=== PATIENT | female | born 1995 | race Caucasian/White ===

== ENCOUNTER 2017-02-19 22:55 | Emergency (ER) | payer OTHER ==
[~2017-02-19] VITALS: Ht 149.9 cm; Wt 44.3 kg
[~2017-02-19 22:55] MED LIST: AMOX875T PO; BCPILLS PO; CIPR-255 PO; ONDA4TAB7 SL; PEDICHW34 PO; VITAMIN C PO
[2017-02-19 22:58] VITALS: Ht 149.9 cm; Wt 44.3 kg
[2017-02-19] MEDS ORDERED: CEPHALEXIN MONOHYDRATE 250 MG CAP PO STA ×2 (23:20)
--- NOTE | 2017-02-19 23:20 | EMERGENCY ROOM VISIT NOTE ---
History Report prepared by Meng: Evelyne Perez Under the Supervision of: Dr. Jaiden Waters M.D. First contact with patient: 23:01 Chief Complaint: HEMATURIA Stated Complaint: PEEING BLOOD AND CLOTS History of Present Illness The patient is a 21 year old female who presents to the Emergency Room with complaints of constant hematuria that was noticed earlier today. She states that there are blood clots in her urine. The patient states that she also experienced one episode of hematuria last week. The patient also experienced back pain a few days ago, but denies having any currently. She is also experiencing nausea, but denies vomiting. The patient also denies fevers. She states that she is not experiencing burning with urination. She adds that when she is finished urinating, she feels like she has to urinate more but cannot. The patient adds that she has been experiencing intermittent increased urinary frequency for the past 3 weeks. The patient is moving her bowels normally. The patient experienced UTIs as a child, but not many since then. The patient denies any current vaginal bleeding. She does not think she has any chance of being . She denies any history of abdominal surgeries. Source of History: patient Onset: earlier today Position: other (bladder) Quality: other (hematuria) Timing: constant Associated Symptoms: + back pain, + nausea, No fevers, No vomiting Note: no burning with urination, increased urinary frequency Review of Systems ROS: Please see HPI. At least 10 systems in total were reviewed and otherwise negative. Past Medical & Surgical Medical Problems: (1) Pneumonia Family History No pertinent family history Social History Smoking Status: Never Smoker Marital Status: single Housing Status: lives with family Occupation Status: student Current/Historical Medications Scheduled Amoxicillin & Pot Clavulanate (Augmentin 875-125 mg), 875 MG PO BID Control Pills ( Control Pills), 1 TAB PO DAILY Cephalexin Monohydrate (Keflex), 500 MG PO TID Ciprofloxacin Hcl (Cipro), 500 MG PO BID Pediatric Multiple Vitamin W/ (Gummi Bear Multivitamin/M), 1 CHW PO DAILY [Vitamin C], 1 TAB PO DAILY Scheduled PRN Ondansetron (Zofran Odt), 4 MG SL Q6H PRN for Nausea or Vomiting Phenazopyridine HCl (Pyridium), 200 MG PO TID PRN for Frequency/Burning w/ Urination Allergies Coded Allergies: Quadrivalent HPV (6,11,16,18) Recom (Verified Allergy, ., 11/05/13) Physical Exam Vital Signs Date Time Temp Pulse Resp B/P Pulse Ox O2 Delivery O2 Flow Rate FiO2 02/19/17 22:58 36.8 77 18 118/88 95 Room Air Physical Exam GENERAL: Patient is in no acute distress. HEENT: No acute trauma, normocephalic atraumatic, mucous membranes moist, no nasal congestion, no scleral icterus. NECK: No stridor, no adenopathy, no meningismus, trachea is midline. LUNGS: Clear to auscultation bilaterally, no wheeze, no rhonchi, breath sounds equal. HEART: Without murmurs gallops or rubs, regular rate and rhythm. ABDOMEN: Soft, mildly tender over bladder, bowel sounds positive, no hernias, no peritonitis. BACK: No flank discomfort with percussion. EXTREMITIES: No cyanosis or edema, full range of motion of all the joints without pain or difficulty, no signs for acute trauma. NEUROLOGIC: Oriented x 3, no acute motor or sensory deficits, no focal weakness. SKIN: No rash, no jaundice, no diaphoresis. Medical Decision & Procedures Laboratory Results Test 02/19/17 23:07 Urine dip showed blood, leukocytes, and nitrites, consistent with infection. Urine was negative. Laboratory results reviewed by me. ED Course 2304: The patient was evaluated in room B5. A complete history and physical exam was performed. 2320: Ordered Keflex Cap 500 mg PO, Keflex Cap 500 mg PO 2324: Reevaluated the patient. Discussed results and discharge instructions: she verbalized understanding and agreement. The patient is ready for discharge. 2330: Ordered Phenazopyridine HCl 1 homepack PO Medical Decision Differential diagnoses considered include UTI, hematuria, , vaginal bleeding, pyelonephritis. The patient presents with urinary frequency, urgency, she has had some intermittent blood in her urine. She has not had vomiting or flank pain. There has been no fever. No unusual vaginal discharge. She had no concerns for . The patient was not febrile or toxic. She was not by our testing. Urine dip does suggest infection with leukocytes, blood and nitrites. A urine culture is pending. The patient was given oral Pyridium and oral Keflex. She is being discharged on both. She can return if worsening. Impression Primary Impression: UTI (urinary tract infection) Scribe Attestation The scribe's documentation has been prepared under my direction and personally reviewed by me in its entirety. I confirm that the note above accurately reflects all work, treatment, procedures, and medical decision making performed by me. Departure Information Dispostion Home / Self-Care Prescriptions Phenazopyridine HCl (Pyridium) 200 Mg Tab 200 MG PO TID Y for Frequency/Burning w/Urination, #6 TAB Prov: Jaiden Waters M.D. 02/19/17 Cephalexin Monohydrate (Keflex) 500 Mg Cap 500 MG PO TID for 7 Days, #21 CAP Prov: Jaiden Waters M.D. 02/19/17 Referrals No Doctor, Assigned (PCP) Forms HOME CARE DOCUMENTATION FORM, IMPORTANT VISIT INFORMATION, WORK / SCHOOL INSTRUCTIONS Patient Instructions My [facility] [place] Additional Instructions keflex 3x per day for 1 week stay well hydrated pyridium 3x per day for 2 days for the discomfort to urinate tylenol for pain return if worseing or not improving Problem Qualifiers Primary Impression: UTI (urinary tract infection) Urinary tract infection type: site unspecified Hematuria presence: with hematuria Qualified Codes: N39.0 - Urinary tract infection, site not specified ; R31.9 - Hematuria, unspecified
[2017-02-19] MEDS ORDERED: PHEN-876 PO (23:23)
[2017-02-19] MEDS ORDERED: CEPH500C PO (23:23)
[2017-02-19] MEDS ORDERED: EMPTY 8 DRAM VIAL ONE (23:27)
[2017-02-19] MEDS ORDERED: PHENAZOPYRIDINE HOME PACK 200 MG VIAL PO ONE (23:30)
[2017-02-19 23:40] VITALS: BP 110/60; PULSE 61; TEMP 36.9; O2SAT 95
== END 2017-02-19 23:43 | disposition home or self-care (01) ==
LOC: C.EDB 22:56
DX: N39.0 Urinary tract infection, site not specified (principal); Z87.440 Personal history of urinary (tract) infections; Z79.899 Other long term (current) drug therapy; Z88.8 Allergy status to other drugs, medicaments and biological substances

== ENCOUNTER 2018-03-03 14:16 | Emergency (ER) | payer OTHER ==
[~2018-03-03] VITALS: Ht 149.9 cm; Wt 48.1 kg
[2018-03-03 14:18] VITALS: TEMP 36.7
[2018-03-03] MEDS ORDERED: DiphenhydrAMINE HCL 50 MG/ML VIAL IV STA (14:35)
[2018-03-03] MEDS ORDERED: MAGNESIUM SULFATE 1GM / D5W 1 GM BAG IV STA (14:35)
[2018-03-03] MEDS ORDERED: PROCHLORPERAZINE 5 MG/ML 2 ML VIAL IV STA (14:35)
[2018-03-03] MEDS ORDERED: SODIUM CHLORIDE 0.9% 1000ML 1,000 ML IV STA (14:35)
[2018-03-03] MEDS ORDERED: ACETAMINOPHEN 500 MG TAB PO STA (14:35)
[2018-03-03 14:44] VITALS: Ht 149.9 cm; Wt 48.1 kg
[2018-03-03 14:46] VITALS: O2SAT 99
--- NOTE | 2018-03-03 14:48 | EMERGENCY ROOM VISIT NOTE ---
History Report prepared by Meng: Ananda Godinez Under the Supervision of: Dr. Michael England M.D. First contact with patient: 14:21 Chief Complaint: ANXIETY Stated Complaint: LT HAND ARM LIPS AND TONGUE [id number] PREG History of Present Illness The patient is a 22 year old female who presents to the Emergency Room with complaints of resolved left face and hand numbness that occurred a couple of hours ago. The patient reports she is currently for the first time and is 16 weeks. She reports that she did have an ultrasound confirming that there was a baby in her uterus. The patient states that she had a 30 minute episode of left hand and left face numbness that occurred a couple of hours ago. She reports her lips and tongue also went numb during the the episode. The patient states she also started to experience blurriness in her eyes bilaterally that she describes as "crystal like". She states her symptoms resolved in 30 minutes but she reports she currently has a headache. The patient states she does a have a history of migraines, which she follows up with her PCP for. She reports she has not had a CT scan done but states she was put on medication, which she reports does not relieve her migraine. The patient denies any new abdominal pain , vomiting, and vaginal bleeding. She does report nausea but states she believes it is due to the . Source of History: patient Onset: a couple of hours ago Position: hand (left), other (left face) Quality: numbness Timing: resolved Associated Symptoms: + headache, + nausea, No vomiting, No abdominal pain Note: Associated symptoms: blurry vision Denies Vaginal bleeding Review of Systems See HPI for pertinent positives & negatives. A total of 10 systems reviewed and were otherwise negative. Past Medical & Surgical Medical Problems: (1) Pneumonia Family History No pertinent family history Social History Smoking Status: Current Every Day Smoker Marital Status: single Housing Status: lives with family Occupation Status: student Current/Historical Medications Scheduled Buspirone Hcl (Buspar), 1 TAB PO BID Multivit/Min/Iron/Fol Ac/Pren ( Vitamin), 1 TAB PO DAILY Allergies Coded Allergies: POLLEN (Unverified Allergy, Unknown, unknown, 03/03/18) Quadrivalent HPV (6,11,16,18) Recom (Verified Allergy, Unknown, ., 03/03/18 ) Uncoded Allergies: CAT AND DOG DANDER (Allergy, Unknown, unknown, 03/03/18) Physical Exam Vital Signs Date Time Temp Pulse Resp B/P (MAP) Pulse Ox O2 Delivery O2 Flow Rate FiO2 03/03/18 16:15 88 16 103/70 99 Room Air 03/03/18 15:33 77 16 108/76 98 Room Air 03/03/18 15:18 87 03/03/18 14:46 99 Room Air 03/03/18 14:18 36.7 109 18 116/79 99 Room Air Physical Exam GENERAL: Awake, alert, well-appearing, in no acute distress HENT: Normocephalic, atraumatic. Oropharynx unremarkable. No evidence of meningitis or encephalitis. EYES: Normal conjunctiva. Sclera non-icteric. NECK: Supple. No nuchal rigidity. FROM. No JVD. RESPIRATORY: Clear to auscultation. CARDIAC: Regular rate, normal rhythm. Extremities warm and well perfused. Pulses equal. ABDOMEN: Soft, non-distended. No tenderness to palpation. No rebound or guarding. No masses. RECTAL: Deferred. MUSCULOSKELETAL: Chest examination reveals no tenderness. The back is symmetrical on inspection without obvious abnormality. There is no CVA tenderness to palpation. No joint edema. LOWER EXTREMITIES: Calves are equal size bilaterally and non-tender. No edema. No discoloration. NEURO: Normal sensorium. No sensory or motor deficits noted. SKIN: No rash or jaundice noted. Medical Decision & Procedures Laboratory Results 03/03/18 14:59 Red Blood Count 3.57, Mean Corpuscular Volume 92.7, Mean Corpuscular Hemoglobin 33.1, Mean Corpuscular Hemoglobin Concent 35.6, Mean Platelet Volume 9.9, Neutrophils (%) (Auto) 67.6, Lymphocytes (%) (Auto) 23.9, Monocytes (%) (Auto) 6.9, Eosinophils (%) (Auto) 1.0, Basophils (%) (Auto) 0.3, Neutrophils # (Auto) 7.95, Lymphocytes # (Auto) 2.81, Monocytes # (Auto) 0.81, Eosinophils # (Auto) 0.12, Basophils # (Auto) 0.03 03/03/18 14:59 Test 03/03/18 14:59 03/03/18 15:17 White Blood Count 11.76 K/uL (4.8-10.8) Red Blood Count 3.57 M/uL (4.2-5.4) Hemoglobin 11.8 g/dL (12.0-16.0) Hematocrit 33.1 % (37-47) Mean Corpuscular Volume 92.7 fL (80-100) Mean Corpuscular Hemoglobin 33.1 pg (25-34) Mean Corpuscular Hemoglobin Concent 35.6 g/dl (32-36) Platelet Count 163 K/uL (130-400) Mean Platelet Volume 9.9 fL (7.4-10.4) Neutrophils (%) (Auto) 67.6 % Lymphocytes (%) (Auto) 23.9 % Monocytes (%) (Auto) 6.9 % Eosinophils (%) (Auto) 1.0 % Basophils (%) (Auto) 0.3 % Neutrophils # (Auto) 7.95 K/uL (1.4-6.5) Lymphocytes # (Auto) 2.81 K/uL (1.2-3.4) Monocytes # (Auto) 0.81 K/uL (0.11-0.59) Eosinophils # (Auto) 0.12 K/uL (0-0.5) Basophils # (Auto) 0.03 K/uL (0-0.2) RDW Standard Deviation 41.8 fL (36.4-46.3) RDW Coefficient of Variation 12.3 % (11.5-14.5) Immature Granulocyte % (Auto) 0.3 % Immature Granulocyte # (Auto) 0.04 K/uL (0.00-0.02) Anion Gap 7.0 mmol/L (3-11) Est Creatinine Clear Calc Drug Dose 127.1 ml/min Estimated GFR () > 150.0 Estimated GFR (Non- 139.2 BUN/Creatinine Ratio 18.7 (10-20) Calcium Level 8.4 mg/dl (8.5-10.1) Total Bilirubin 0.1 mg/dl (0.2-1) Aspartate Amino Transf (AST/SGOT) 14 U/L (15-37) Alanine Aminotransferase (ALT/SGPT) 12 U/L (12-78) Alkaline Phosphatase 51 U/L (45-117) Total Protein 6.0 gm/dl (6.4-8.2) Albumin 3.1 gm/dl (3.4-5.0) Globulin 2.9 gm/dl (2.5-4.0) Albumin/Globulin Ratio 1.1 (0.9-2) Human Chorionic Gonadotropin, Quant 29106 mIU/mL Urine Color YELLOW Urine Appearance CLEAR (CLEAR) Urine pH 5.0 (4.5-7.5) Urine Specific [place] 1.027 (1.000-1.030) Urine Protein NEG (NEG) Urine Glucose (UA) NEG (NEG) Urine Ketones 1+ (NEG) Urine Occult Blood NEG (NEG) Urine Nitrite NEG (NEG) Urine Bilirubin NEG (NEG) Urine Urobilinogen NEG (NEG) Urine Leukocyte Esterase NEG (NEG) Labs reviewed by ED physician. Medications Administered Medications (Trade) Dose Ordered Sig/Daniele Route Start Time Stop Time Status Last Admin Dose Admin Acetaminophen (Tylenol Tab) 1,000 mg NOW STAT PO 03/03/18 14:35 03/03/18 14:39 DC 03/03/18 15:09 1,000 MG Prochlorperazine Edisylate (Compazine Inj) 5 mg NOW STAT IV 03/03/18 14:35 03/03/18 14:39 DC 03/03/18 15:10 5 MG Diphenhydramine HCl (Benadryl Inj) 50 mg NOW STAT IV 03/03/18 14:35 03/03/18 14:39 DC 03/03/18 15:10 50 MG Sodium Chloride 1,000 ml @ 999 mls/hr Q1H1M STAT IV 03/03/18 14:35 03/03/18 15:35 DC 03/03/18 15:10 999 MLS/HR Magnesium Sulfate (Magnesium Sulfate 1gm / D5W) 1 gm NOW STAT IV 03/03/18 14:35 03/03/18 14:39 DC 03/03/18 15:10 1 GM Potassium Chloride (Klor-Con M10) 40 meq STK-MED ONCE .ROUTE 03/03/18 16:00 03/03/18 16:01 DC 03/03/18 16:03 40 MEQ ED Course 1421: Past medical records reviewed. The patient was evaluated in room B12B. A complete history and physical examination was performed. 1435: Ordered Magnesium Sulfate 1 gm IV, Sodium Chloride 1000 ml @ 999 mls/hr IV , Benadryl Injection 50 mg IV, Compazine Injection 5 mg IV, Tylenol Tab 1000 mg PO. 1600: Ordered Potassium Chloride 40 meq PO. 1631: Upon reexamination the patient is doing well. I discussed results and treatment plan with the patient. She verbalizes agreement and understanding. The patient is ready for discharge. Medical Decision Prior records/ancillary studies reviewed. Triage Nursing notes reviewed. Differential diagnosis: Etiologies such as migraine headache, meningitis, sinusitis, CO exposure, ICH, SAH, infection, tumor, headache, sinus thrombosis, arterial dissection, as well as others were entertained. This is a 22-year-old female who presents the emergency department complaining of a visual aura with a headache that followed. Based on the patient's complaint and presentation I do believe she suffered from a migraine. The patient is and using shared medical decision making I offered to do imaging of her head however she feels at this point that this can be deferred till after her . I am also in agreement with this. She has no evidence of meningitis or encephalitis on examination. Again using shared medical decision making, the patient did consent to a migraine cocktail. She was given Tylenol, Compazine and Benadryl, along with a cyst normal saline bolus and magnesium. Repeat examination revealed much improvement in the patient's symptoms. She does have a slight elevation in her white blood cell count 11.76 however I do feel that the patient is well enough to be discharged home as she is afebrile. She was given potassium here in the emergency department. Patient and family were in agreement with the treatment plan. Medication Reconcilliation Current Medication List: was personally reviewed by me Blood Pressure Screening Patient's blood pressure: Normal blood pressure Impression Primary Impression: Migraine with visual aura Additional Impressions: Hypokalemia Scribe Attestation The scribe's documentation has been prepared under my direction and personally reviewed by me in its entirety. I confirm that the note above accurately reflects all work, treatment, procedures, and medical decision making performed by me. Departure Information Dispostion Home / Self-Care Referrals Cornelius Tate M.D. (PCP) Forms HOME CARE DOCUMENTATION FORM, IMPORTANT VISIT INFORMATION Patient Instructions Headache Migraine Meds Lifestyle, Headache Migraine Triggers Prevent, My [facility] Additional Instructions Follow up with Dr Turcios's office You have been examined and treated today on an emergency basis only. This is not a substitute for, or an effort to provide, complete comprehensive medical care. It is impossible to recognize and treat all injuries or illnesses in a single emergency department visit. It is therefore important that you follow up closely with Dr Tate. Call as soon as possible for an appointment. Thank you for your time and consideration. I look forward to speaking with you again soon. Please don't hesitate to call us if you have any questions. Problem Qualifiers Additional Impressions: Weeks of gestation: unspecified Qualified Codes: Z34.90 - Encounter for supervision of normal , unspecified, unspecified trimester
[2018-03-03] MEDS ORDERED: BUSP15TA70 PO (14:53)
[2018-03-03] MEDS ORDERED: PRENTAB26 PO (14:53)
[2018-03-03 15:13] LABS: BASO % 0.3 %; BASO ABS # 0.03 K/uL (0-0.2); EOS ABS # 0.12 K/uL (0-0.5); HEMATOCRIT 33.1 % (37-47); HEMOGLOBIN 11.8 g/dL (12.0-16.0); IG# 0.04 K/uL (0.00-0.02); LYMPH % 23.9 %; LYMPH ABS # 2.81 K/uL (1.2-3.4); MEAN CELL VOLUME 92.7 fL (80-100); MEAN CORPUSCULAR HEMOGLOBIN 33.1 pg (25-34); MEAN CORPUSCULAR HGB CONC 35.6 g/dl (32-36); MEAN PLATELET VOLUME 9.9 fL (7.4-10.4); MONO % 6.9 %; MONO ABS # 0.81 K/uL (0.11-0.59); NEUT % 67.6 %; NEUT ABS # 7.95 K/uL (1.4-6.5); PLATELET COUNT 163 K/uL (130-400); RED CELL DISTRIBUTION WIDTH CV 12.3 % (11.5-14.5); RED CELL DISTRIBUTION WIDTH SD 41.8 fL (36.4-46.3); WHITE BLOOD COUNT 11.76 K/uL (4.8-10.8)
[2018-03-03 15:31] LABS: ALBUMIN 3.1 gm/dl (3.4-5.0); ALT/SGPT 12 U/L (12-78); AST/SGOT 14 U/L (15-37); BLOOD UREA NITROGEN 9 mg/dl (7-18); CALCIUM 8.4 mg/dl (8.5-10.1); CARBON DIOXIDE 25 mmol/L (21-32); CREATININE 0.47 mg/dl (0.60-1.20); GLUCOSE 83 mg/dl (70-99); POTASSIUM 3.3 mmol/L (3.5-5.1); SODIUM 138 mmol/L (136-145)
[2018-03-03 15:34] LABS: ALKALINE PHOSPHATASE 51 U/L (45-117)
[2018-03-03] MEDS ORDERED: POTASSIUM CHLORIDE 20 MEQ TABCR PO STA (15:34)
[2018-03-03] MEDS ORDERED: POTASSIUM CHLORIDE 10 MEQ TABCR ONE (16:00)
[2018-03-03 16:15] VITALS: BP 103/70; PULSE 88; O2SAT 99
== END 2018-03-03 16:39 | disposition home or self-care (01) ==
LOC: C.EDB 14:18
DX: O99.350 Diseases of the nervous system complicating pregnancy, unspecified trimester (principal); O99.280 Endocrine, nutritional and metabolic diseases complicating pregnancy, unspecified trimester; Z3A.00 Weeks of gestation of pregnancy not specified; G43.109 Migraine with aura, not intractable, without status migrainosus; E87.6 Hypokalemia; F17.200 Nicotine dependence, unspecified, uncomplicated; Z88.7 Allergy status to serum and vaccine

== ENCOUNTER 2019-03-25 18:42 | Observation (INO) ==
[2019-03-25 19:13] LABS: Basophils # (auto) 0.05 K/uL (0-0.2); Basophils % (auto) 0.4 %; Eosinophils # (auto) 0.17 K/uL (0-0.5); Eosinophils % (auto) 1.2 %; Hematocrit (blood only) 34.9 % (37-47); Hemoglobin 11.9 g/dL (12.0-16.0); Immature Granulocytes # (auto) 0.03 K/uL (0.00-0.02); Immature Granulocytes % (auto) 0.2 %; Lymphocytes # (auto) 2.74 K/uL (1.2-3.4); Lymphocytes % (auto) 19.2 %; Mean Corpuscular Hgb Conc 34.1 g/dL (32-36); Mean Corpuscular Volume 91.4 fL (80-100); Mean Platelet Volume 10.9 fL (7.4-10.4); Monocytes % (auto) 4.9 %; Neutrophils # (auto) 10.55 K/uL (1.4-6.5); Neutrophils % (auto) 74.1 %; Platelet Count 193 K/uL (130-400); RDW Coefficient of Variation 12.5 % (11.5-14.5); Red Blood Count 3.82 M/uL (4.2-5.4); White Blood Count 14.24 K/uL (4.8-10.8)
[2019-03-25 19:24] LABS: INR 1.1 (0.9-1.1); Partial Thromboplastin Ratio 0.8; Partial Thromboplastin Time 21.7 Seconds (21.0-31.0); Prothrombin Time 10.9 Seconds (9.0-12.0)
[2019-03-25 19:29] LABS: Albumin Level 3.8 gm/dl (3.4-5.0); BUN Creatinine Ratio 15.9 (10-20); Calcium 8.3 mg/dl (8.5-10.1); Creatinine Clr Calc Pharmacy 70.2 ml/min; Est GFR (African American) 123.3; Est GFR (Non-African American) 106.4; Potassium 3.5 mmol/L (3.5-5.1)
[2019-03-25 19:39] LABS: Albumin Globulin Ratio 1.3 (0.9-2); Bilirubin,Total 0.2 mg/dl (0.2-1); Total Protein 6.8 gm/dl (6.4-8.2)
--- NOTE | 2019-03-25 21:33 | Ultrasound Report ---
ULTRASOUND OF THE PELVIS CLINICAL HISTORY: Vaginal bleeding. Recent . COMPARISON STUDY: Pelvic CT dated 11/05/2013. TECHNIQUE: Real-time, grayscale, and color flow sonography of the pelvis is performed both transabdom inally and endovaginally. Images are reviewed in the transverse and longitudinal planes. The endovagi nal examination was performed for better assessment of the endometrium and adnexa. FINDINGS: Uterus: The uterus is normal in size and echotexture, measuring 8.2 x 4.4 x 4.7 cm. Endometrium: The endometrium is markedly thickened and heterogeneous, measuring up to 2.1 cm. Interna l flow is shown on color imaging Ovaries: The ovaries are normal in size and morphology. The right ovary measures 3.8 x 1.6 x 2.1 cm a nd the left ovary measures 3.2 x 1.3 x 1.2 cm. There are bilateral ovarian follicles. Normal Doppler waveforms are shown within both ovaries. Pelvis: There is small volume of free fluid in the cul-de-sac. No concerning adnexal lesion is seen. IMPRESSION: 1. The endometrium is markedly thickened and heterogeneous, and shows internal flow on color imaging. Given the history of recent this is highly concerning for retained products of conception. Gynecology consultation is recommended. 2. Unremarkable sonographic appearance of the ovaries. 3. A small volume of free fluid in cul-de-sac is nonspecific and likely within physiologic limits. Electronically signed by: Jaiden La M.D. 03/25/2019 9:32 PM
--- NOTE | 2019-03-25 21:56 | Emergency Department Note ---
History of Present Illness General Chief complaint: Vaginal Bleeding Stated complaint: SEVERE VAGINAL BLEEDING Source: patient Mode of arrival: ambulatory Limitations: no limitations History of Present Illness Maximum Pain Intensity: 3 This patient is a 23-year-old female who presents to the emergency department complaining of vaginal bleeding. The patient states that she had a surgical 3 months ago. She states she has had vaginal spotting since then. Over the past 1 week, the patient has been developing gushes of heavier bleeding approximately 1 time per day. She states that today, she has had heavy bleeding all day long and has been bleeding through tampons and pads. She states she has been passing clots. She did follow-up with her RAIL DETECTOR CAR OPERATOR at [facility] last week and they ran some blood tests on her. She states they called her in a control pill which she started today. They did have an ultrasound scheduled for this coming week. Patient reports some cramping in her lower abdomen and rates the discomfort a 3/10. She is not taking any medications for symptoms. Home Medications Home Medications Medication Instructions Recorded Confirmed Type Zyrtec 10 mg PO DAILY 08/04/18 03/25/19 History bupropion HCl [Wellbutrin XL] 150 mg PO QAM 08/04/18 03/25/19 History fluticasone propionate [Flonase 1 spray INTRANASAL DAILY 08/04/18 03/25/19 History Allergy Relief] hydroxyzine HCl 25 mg PO DAILY PRN 08/04/18 03/25/19 History valacyclovir [Valtrex] 500 mg PO DAILY 08/04/18 03/25/19 History norgestimate-ethinyl estradiol 1 tab PO QAM 03/25/19 03/25/19 History [Sprintec (28)] sertraline 50 mg PO DAILY 03/25/19 03/25/19 History Allergies Allergy/AdvReac Type Severity Reaction Status Date / Time human papillomavirus Allergy Severe Anaphylaxis Verified 03/25/19 19:06 vaccine, quadr pollen extracts Allergy Intermediate Hives Verified 03/25/19 19:06 CAT AND DOG DANDER Allergy Intermediate Hives Uncoded 03/25/19 19:06 Past Med/Surg History Medical History ADHD Anxiety Depression Genital herpes Social History Preferred Language: Mongolian Communication Ability: Effective Inspector Toys Required: No Beliefs That Will Affect Care: None marital status: Single Current Living Situation: Family Current Living Situation Comment: grandparents and 7 month baby Other Information That Helps Us Care for You: No Feels Safe at Home: Yes Safety Concerns: Feels Safe At This Time Smoking Status: Current every day smoker Tobacco Type: cigarettes Cigarettes Per Day: 10 Do You Dip or Chew Tobacco: No Second Hand Exposure: Yes Tobacco Cessation Education Requested by Patient: No Hx Alcohol Use: Yes Alcohol type: beer Hx Substance Use: No Review of Systems A total of 10 systems reviewed and were otherwise negative Physical Exam Vital Signs Vital Signs - 24 hr 03/25/19 18:43 03/25/19 23:01 Temperature 36.4 C L Temperature Source Oral Sepsis Recent Fever Within 48 Hours No Sepsis Action Taken by Nursing No Action Required Pulse Rate 83 Pulse Rate [Finger] 64 Respiratory Rate 18 18 Respiratory Effort / Characteristics Non-Labored Spontaneous Non-Labored Spontaneous Respiratory Depth Normal Normal Respiratory Pattern Regular Blood Pressure 102/52 L Blood Pressure [Right Arm] 108/64 Blood Pressure Mean 68 Blood Pressure Mean [Right Arm] 78 Blood Pressure Position Sitting Pulse Oximetry 100 98 Oxygen Delivery Method Room Air Room Air VITALS: Vitals are noted on the nurse's note and reviewed by myself. Vital signs stable. GENERAL: This is a 23-year-old female, in no acute distress, nondiaphoretic, well-developed well-nourished. SKIN: The skin was without rashes or bruising. EYES: Pupils equal round and reactive to light and accommodation. MOUTH: Mucous membranes moist. NECK: Supple without nuchal rigidity. No lymphadenopathy. HEART: Regular rate and rhythm without murmurs gallops or rubs. LUNGS: Clear to auscultation bilaterally without wheezes, rales or rhonchi. ABDOMEN: Positive bowel sounds x 4. Soft, mild tenderness to palpation across the lower abdomen. PELVIC: External genitalia unremarkable. There is a moderate amount of blood within the vaginal vault. Mild tenderness of the uterus. No adnexal masses. NEURO: Patient was alert and oriented to person place and time. Course Consultations Consultation #1: Dr. Gabriella Galvin RAIL DETECTOR CAR OPERATOR Administered Medications Discontinued Medications Bupropion HCl (Wellbutrin-Xl) 150 mg PO QAM [place] Stop: 04/25/19 08:59 Last Admin: 03/26/19 08:31 Dose: 150 mg Documented by: [id number] Cetirizine HCl (Zyrtec) 10 mg PO DAILY [facility] Stop: 04/25/19 08:59 Last Admin: 03/26/19 08:31 Dose: 10 mg Documented by: [id number] Ferric Subsulfate (Astringyn) Confirm Administered Dose 8 gm .ROUTE .[facility] Stop: 03/25/19 23:25 Last Admin: 03/26/19 00:34 Dose: 8 gm Documented by: [id number] Hydroxyzine HCl (Vistaril) 25 mg PO DAILY PRN PRN Reason: Acid Reflux Stop: 04/25/19 01:52 Last Admin: 03/26/19 08:32 Dose: 25 mg Documented by: [id number] Lactated Ringer's (Lr) 1,000 mls @ 150 mls/hr IV .Q6H40M [facility] Stop: 04/24/19 22:59 Last Admin: 03/26/19 02:49 Dose: 150 mls/hr Documented by: [id number] Cefazolin Sodium (Ancef 1000mg) 1,000 mg in 7.5 mls @ 2.5 mls/min IV Q8H [facility] Stop: 04/05/19 05:59 Last Admin: 03/26/19 05:46 Dose: 2.5 mls/min Documented by: [id number] Methylergonovine Maleate (Methergine) Confirm Administered Dose 0.2 mg .ROUTE .[facility] Stop: 03/25/19 23:26 Last Admin: 03/26/19 00:34 Dose: 0.2 mg Documented by: [id number] Cosigned by: [id number] Misoprostol (Cytotec) 1,000 mcg PV TODAY@2330 [facility] Stop: 03/25/19 23:59 Last Admin: 03/26/19 00:34 Dose: 600 mcg Documented by: [id number] Sertraline HCl (Zoloft) 50 mg PO DAILY [facility] Stop: 04/25/19 08:59 Last Admin: 03/26/19 08:32 Dose: 50 mg Documented by: [id number] Valacyclovir HCl (Valtrex) 500 mg PO DAILY [facility] Stop: 04/05/19 08:59 Last Admin: 03/26/19 08:32 Dose: 500 mg Documented by: [id number] Medical Decision Making Differential Diagnosis Differential diagnosis includes retained products of conception, endometritis, bleeding disorder, among others. Home Medications Current Medication List: was personally reviewed by me Laboratory Data Attestation: I reviewed the patient's lab results. Result diagrams: 03/26/19 06:17 03/25/19 19:00 Lab Results 03/25/19 03/25/19 03/25/19 Range/Units 19:00 19:00 19:00 WBC 14.24 H (4.8-10.8) K/uL RBC 3.82 L (4.2-5.4) M/uL Hgb 11.9 L (12.0-16.0) g/dL Hct 34.9 L (37-47) % MCV 91.4 (80-100) fL MCH 31.2 (25-34) pg MCHC 34.1 (32-36) g/dL RDW Std Deviation 42.0 (36.4-46.3) fL RDW Coeff of Francisco 12.5 (11.5-14.5) % Plt Count 193 (130-400) K/uL MPV 10.9 H (7.4-10.4) fL Immature Gran % (Auto) 0.2 % Neut % (Auto) 74.1 % Lymph % (Auto) 19.2 % Moffat % (Auto) 4.9 % Eos % (Auto) 1.2 % Baso % (Auto) 0.4 % Immature Gran # (Auto) 0.03 H (0.00-0.02) K/uL Neut # (Auto) 10.55 H (1.4-6.5) K/uL Lymph # (Auto) 2.74 (1.2-3.4) K/uL Moffat # (Auto) 0.70 H (0.11-0.59) K/uL Eos # (Auto) 0.17 (0-0.5) K/uL Baso # (Auto) 0.05 (0-0.2) K/uL PT (9.0-12.0) Seconds INR (0.9-1.1) APTT (21.0-31.0) Seconds PTT Ratio Sodium 141 (136-145) mmol/L Potassium 3.5 (3.5-5.1) mmol/L Chloride 108 H (98-107) mmol/L Carbon Dioxide 25 (21-32) mmol/L Anion Gap 8.0 (3-11) BUN 12 (7-18) mg/dl Creatinine 0.78 (0.6-1.2) mg/dl Est Cr Clr Drug Dosing 70.2 ml/min Est GFR ( Amer) 123.3 Est GFR (Non-Af Amer) 106.4 BUN/Creatinine Ratio 15.9 (10-20) Glucose 120 H (70-99) mg/dl Calcium 8.3 L (8.5-10.1) mg/dl Total Bilirubin 0.2 (0.2-1) mg/dl AST 14 L (15-37) U/L ALT 16 (12-78) U/L Alkaline Phosphatase 69 (45-117) U/L Total Protein 6.8 (6.4-8.2) gm/dl Albumin 3.8 (3.4-5.0) gm/dl Globulin 3.0 (2.5-4.0) gm/dl Albumin/Globulin Ratio 1.3 (0.9-2) TSH 0.813 (0.300-4.500) uIu/ml HCG, Quant 6 mIU/ml Blood Type Antibody Screen 03/25/19 03/25/19 03/25/19 Range/Units 19:00 19:00 19:00 WBC (4.8-10.8) K/uL RBC (4.2-5.4) M/uL Hgb (12.0-16.0) g/dL Hct (37-47) % MCV (80-100) fL MCH (25-34) pg MCHC (32-36) g/dL RDW Std Deviation (36.4-46.3) fL RDW Coeff of Francisco (11.5-14.5) % Plt Count (130-400) K/uL MPV (7.4-10.4) fL Immature Gran % (Auto) % Neut % (Auto) % Lymph % (Auto) % Moffat % (Auto) % Eos % (Auto) % Baso % (Auto) % Immature Gran # (Auto) (0.00-0.02) K/uL Neut # (Auto) (1.4-6.5) K/uL Lymph # (Auto) (1.2-3.4) K/uL Moffat # (Auto) (0.11-0.59) K/uL Eos # (Auto) (0-0.5) K/uL Baso # (Auto) (0-0.2) K/uL PT 10.9 (9.0-12.0) Seconds INR 1.1 (0.9-1.1) APTT 21.7 (21.0-31.0) Seconds PTT Ratio 0.8 Sodium (136-145) mmol/L Potassium (3.5-5.1) mmol/L Chloride (98-107) mmol/L Carbon Dioxide (21-32) mmol/L Anion Gap (3-11) BUN (7-18) mg/dl Creatinine (0.6-1.2) mg/dl Est Cr Clr Drug Dosing ml/min Est GFR ( Amer) Est GFR (Non-Af Amer) BUN/Creatinine Ratio (10-20) Glucose (70-99) mg/dl Calcium (8.5-10.1) mg/dl Total Bilirubin (0.2-1) mg/dl AST (15-37) U/L ALT (12-78) U/L Alkaline Phosphatase (45-117) U/L Total Protein (6.4-8.2) gm/dl Albumin (3.4-5.0) gm/dl Globulin (2.5-4.0) gm/dl Albumin/Globulin Ratio (0.9-2) TSH Cancelled (0.300-4.500) uIu/ml HCG, Quant mIU/ml Blood Type O Positive Antibody Screen NEGATIVE Imaging Data Attestation: I personally reviewed and interpreted this imaging study as follows: Radiologist's Impression: ULTRASOUND OF THE PELVIS FINDINGS: Uterus: The uterus is normal in size and echotexture, measuring 8.2 x 4.4 x 4.7 cm. Endometrium: The endometrium is markedly thickened and heterogeneous, measuring up to 2.1 cm. Internal flow is shown on color imaging Ovaries: The ovaries are normal in size and morphology. The right ovary measures 3.8 x 1.6 x 2.1 cm and the left ovary measures 3.2 x 1.3 x 1.2 cm. There are bilateral ovarian follicles. Normal Doppler waveforms are shown within both ovaries. Pelvis: There is small volume of free fluid in the cul-de-sac. No concerning adnexal lesion is seen. IMPRESSION: 1. The endometrium is markedly thickened and heterogeneous, and shows internal flow on color imaging. Given the history of recent this is highly concerning for retained products of conception. Gynecology consultation is recommended. 2. Unremarkable sonographic appearance of the ovaries. 3. A small volume of free fluid in cul-de-sac is nonspecific and likely within physiologic limits. Blood Pressure Blood Pressure Findings: Normal blood pressure Blood Pressure Disposition: did not require urgent referral MDM Narrative The patient is a 23-year-old female who presents today complaining of vaginal bleeding. Labs revealed leukocytosis of 14,000, hemoglobin of 11.9. Labs otherwise unremarkable. Quantitative beta-hCG was found to be 6. Pelvic ultrasound showed evidence of retained products of conception. [facility] RAIL DETECTOR CAR OPERATOR was consulted and agreed to evaluate the patient for surgical intervention. Impression & Plan Retained products of conception Discharge Plan Visit Data *Final* Discharge Date/Time: 03/25/19 23:27 Chief Complaint: Vaginal Bleeding Stated Complaint: SEVERE VAGINAL BLEEDING ED Provider: Chuy Le ED Midlevel Provider: Bertha Lewis Discharge Problem: Retained products of conception Patient Disposition: Admitted As Inpatient Condition: Good Discharge Instructions Interventions: ED Discharge Assessment Last Done: 03/25/19 23:27
[2019-03-25] MEDS ORDERED: CEFAZOLIN 2000MG 2,000 MG/15 ML SYR IV ONE (22:58)
[2019-03-25] MEDS ORDERED: LACTATED RINGER'S 1,000 ML IV SCH (23:00)
[2019-03-25] MEDS ORDERED: FERRIC SUBSULFATE 8 GM VIAL ONE (23:24)
[2019-03-25] MEDS ORDERED: METHYLERGONOVINE MALEATE 0.2 MG/ML AMP ONE (23:25)
[2019-03-25] MEDS ORDERED: miSOPROStol 200 MCG TAB PV SCH (23:30)
--- NOTE | 2019-03-25 23:32 | History & Physical Report ---
Date of Service March 25, 2019 Assessment & Plan (1) Incomplete with delayed or excessive hemorrhage: 23 yo s/p Elective 3 months ago, now with Heavy VB, retained placenta/ POC in uterus per US Discussed options, decided on surgical evacuation of uterine contents and D&C See HPI Signed informed consent All questions were answered History of Present Illness Chief Complaint: Vaginal bleeding, s/p 3 months ago Primary Care Provider: NO PCP Patient is a 23 yo female who presented to ER eith Heavy VB She had elective 3 months ago at a clinic in [place] She had been bleeding/ spotting since then. Bleeding started to be heavy for the last week She saw marketing services specialist last week and ordered US She scheduled that for 03/27 She had heavy bleeding today, was pouring blood in toilet and came to ER US was done and endometrium was significantly thickened at 2.1 cm suggesting retained POC/ Placenta Her Hb 11 but WBCC 14 I discussed the findings with her and recommended evauation of uterine cavity in OR with Suction and D&C under US guidance We corinna discussed medical with Cytotec which may take days to weeks to work and may fail After long discussion she decided for surgery Understands the risks as bleeding, infection, uterine perforation, injury to surrounding organs ( bowels, bladder0 more surgeries to correct those, Asherman syndrome She signed informed consent All questions were answered Allergies Allergy/AdvReac Type Severity Reaction Status Date / Time human papillomavirus Allergy Severe Anaphylaxis Verified 03/25/19 19:06 vaccine, quadr pollen extracts Allergy Intermediate Hives Verified 03/25/19 19:06 CAT AND DOG DANDER Allergy Intermediate Hives Uncoded 03/25/19 19:06 Home Medications Home Medications Medication Instructions Recorded Confirmed Type Zyrtec 10 mg PO DAILY 08/04/18 03/25/19 History bupropion HCl [Wellbutrin XL] 150 mg PO QAM 08/04/18 03/25/19 History fluticasone propionate [Flonase 1 spray INTRANASAL DAILY 08/04/18 03/25/19 History Allergy Relief] hydroxyzine HCl 25 mg PO DAILY PRN 08/04/18 03/25/19 History valacyclovir [Valtrex] 500 mg PO DAILY 08/04/18 03/25/19 History norgestimate-ethinyl estradiol 1 tab PO QAM 03/25/19 03/25/19 History [Sprintec (28)] sertraline 50 mg PO DAILY 03/25/19 03/25/19 History Patient History Medical History ADHD Anxiety Depression Genital herpes Social History Preferred Language: Turkish Communication Ability: Effective Beliefs That Will Affect Care: None marital status: Single Current Living Situation: Family Feels Safe at Home: Yes Smoking Status: Current every day smoker Tobacco Type: cigarettes Cigarettes Per Day: 7 Second Hand Exposure: No Hx Alcohol Use: No Hx Substance Use: No Review of Systems All systems reviewed & are unremarkable except as noted in HPI & below Physical Exam Constitutional: WD/WN, vitals as above + thin NAD Gastrointestinal (Abdomen): normal bowel sounds, soft, nontender, no hepatosplenomegaly Genitourinary: Large amount of blood per her ER doctor Results & Data Vital Signs (Past 12 Hours) Vital Signs Temp Pulse Pulse Resp BP BP Pulse Ox 03/25/19 23:01 64 18 108/64 98 03/25/19 18:43 36.4 C L 83 18 102/52 L 100 Laboratory Results 03/25/19 03/25/19 03/25/19 Range/Units 19:00 19:00 19:00 WBC (4.8-10.8) K/uL RBC (4.2-5.4) M/uL Hgb (12.0-16.0) g/dL Hct (37-47) % MCV (80-100) fL MCH (25-34) pg MCHC (32-36) g/dL RDW Std Deviation (36.4-46.3) fL RDW Coeff of Francisco (11.5-14.5) % Plt Count (130-400) K/uL MPV (7.4-10.4) fL Immature Gran % (Auto) % Neut % (Auto) % Lymph % (Auto) % Ogle % (Auto) % Eos % (Auto) % Baso % (Auto) % Immature Gran # (Auto) (0.00-0.02) K/uL Neut # (Auto) (1.4-6.5) K/uL Lymph # (Auto) (1.2-3.4) K/uL Ogle # (Auto) (0.11-0.59) K/uL Eos # (Auto) (0-0.5) K/uL Baso # (Auto) (0-0.2) K/uL PT 10.9 (9.0-12.0) Seconds INR 1.1 (0.9-1.1) APTT 21.7 (21.0-31.0) Seconds PTT Ratio 0.8 Sodium (136-145) mmol/L Potassium (3.5-5.1) mmol/L Chloride (98-107) mmol/L Carbon Dioxide (21-32) mmol/L Anion Gap (3-11) BUN (7-18) mg/dl Creatinine (0.6-1.2) mg/dl Est Cr Clr Drug Dosing ml/min Est GFR ( Amer) Est GFR (Non-Af Amer) BUN/Creatinine Ratio (10-20) Glucose (70-99) mg/dl Calcium (8.5-10.1) mg/dl Total Bilirubin (0.2-1) mg/dl AST (15-37) U/L ALT (12-78) U/L Alkaline Phosphatase (45-117) U/L Total Protein (6.4-8.2) gm/dl Albumin (3.4-5.0) gm/dl Globulin (2.5-4.0) gm/dl Albumin/Globulin Ratio (0.9-2) TSH Cancelled (0.300-4.500) uIu/ml HCG, Quant mIU/ml Blood Type O Positive Antibody Screen NEGATIVE 03/25/19 03/25/19 03/25/19 Range/Units 19:00 19:00 19:00 WBC 14.24 H (4.8-10.8) K/uL RBC 3.82 L (4.2-5.4) M/uL Hgb 11.9 L (12.0-16.0) g/dL Hct 34.9 L (37-47) % MCV 91.4 (80-100) fL MCH 31.2 (25-34) pg MCHC 34.1 (32-36) g/dL RDW Std Deviation 42.0 (36.4-46.3) fL RDW Coeff of Francisco 12.5 (11.5-14.5) % Plt Count 193 (130-400) K/uL MPV 10.9 H (7.4-10.4) fL Immature Gran % (Auto) 0.2 % Neut % (Auto) 74.1 % Lymph % (Auto) 19.2 % Ogle % (Auto) 4.9 % Eos % (Auto) 1.2 % Baso % (Auto) 0.4 % Immature Gran # (Auto) 0.03 H (0.00-0.02) K/uL Neut # (Auto) 10.55 H (1.4-6.5) K/uL Lymph # (Auto) 2.74 (1.2-3.4) K/uL Ogle # (Auto) 0.70 H (0.11-0.59) K/uL Eos # (Auto) 0.17 (0-0.5) K/uL Baso # (Auto) 0.05 (0-0.2) K/uL PT (9.0-12.0) Seconds INR (0.9-1.1) APTT (21.0-31.0) Seconds PTT Ratio Sodium 141 (136-145) mmol/L Potassium 3.5 (3.5-5.1) mmol/L Chloride 108 H (98-107) mmol/L Carbon Dioxide 25 (21-32) mmol/L Anion Gap 8.0 (3-11) BUN 12 (7-18) mg/dl Creatinine 0.78 (0.6-1.2) mg/dl Est Cr Clr Drug Dosing 70.2 ml/min Est GFR ( Amer) 123.3 Est GFR (Non-Af Amer) 106.4 BUN/Creatinine Ratio 15.9 (10-20) Glucose 120 H (70-99) mg/dl Calcium 8.3 L (8.5-10.1) mg/dl Total Bilirubin 0.2 (0.2-1) mg/dl AST 14 L (15-37) U/L ALT 16 (12-78) U/L Alkaline Phosphatase 69 (45-117) U/L Total Protein 6.8 (6.4-8.2) gm/dl Albumin 3.8 (3.4-5.0) gm/dl Globulin 3.0 (2.5-4.0) gm/dl Albumin/Globulin Ratio 1.3 (0.9-2) TSH 0.813 (0.300-4.500) uIu/ml HCG, Quant 6 mIU/ml Blood Type Antibody Screen
--- NOTE | 2019-03-25 23:41 | Anesthesiology Consultation ---
Date of Service March 25, 2019 Assessment & Plan Chart Review Chart Review: Acceptable Risk for Surgery Consults Requested none History Surgery Operation Date: 03/25/19 23:25 Proposed Procedures p Dilation and Evacuation - Chago Quiroz MD Height/Weight Height: 4 ft 11 in Weight: 40 kg Allergies Allergy/AdvReac Type Severity Reaction Status Date / Time human papillomavirus Allergy Severe Anaphylaxis Verified 03/25/19 19:06 vaccine, quadr pollen extracts Allergy Intermediate Hives Verified 03/25/19 19:06 CAT AND DOG DANDER Allergy Intermediate Hives Uncoded 03/25/19 19:06 Medications Home Medications Medication Instructions Recorded Confirmed Last Taken Zyrtec 10 mg PO DAILY 08/04/18 03/25/19 03/25/19 bupropion HCl [Wellbutrin XL] 150 mg PO QAM 08/04/18 03/25/19 03/25/19 fluticasone propionate [Flonase 1 spray INTRANASAL DAILY 08/04/18 03/25/19 03/25/19 Allergy Relief] hydroxyzine HCl 25 mg PO DAILY PRN 08/04/18 03/25/19 08/10/18 09:00 valacyclovir [Valtrex] 500 mg PO DAILY 08/04/18 03/25/19 03/25/19 norgestimate-ethinyl estradiol 1 tab PO QAM 03/25/19 03/25/19 03/25/19 [Sprintec (28)] sertraline 50 mg PO DAILY 03/25/19 03/25/19 Unknown NPO Date Last Intake of Fluids: 03/25/19 Time Last Intake of Fluids: 16:00 Date Last Intake of Solids: 03/25/19 Time Last Intake of Solids: 16:00 Past Medical History Medical History ADHD Anxiety Depression Genital herpes Social History Smoking Status: Current every day smoker tobacco type: cigarettes Smoking cigarettes per day: 7 Hx Alcohol Use: No Hx Substance Use: No substance use type: does not use Physical Exam Vital Signs Last Vital Signs Temp 36.4 C L 03/25/19 18:43 Pulse 64 03/25/19 23:01 Resp 18 03/25/19 23:01 BP 108/64 03/25/19 23:01 Pulse Ox 98 03/25/19 23:01
[2019-03-25] MEDS ORDERED: fentaNYL citrate 100 MCG/2 ML VIAL IV PRN (23:43)
[2019-03-25] MEDS ORDERED: ePHEDrine sulfate 50 MG/ML AMP IV PRN (23:43)
[2019-03-25] MEDS ORDERED: ATROPINE SULFATE 0.1 MG/ML 10ML SYR IV PRN (23:43)
[2019-03-25] MEDS ORDERED: HYDROmorphone INJ 1 MG/ML SYRINGE IV PRN (23:43)
[2019-03-25] MEDS ORDERED: fentaNYL citrate 100 MCG/2 ML VIAL ONE (23:51)
[2019-03-25] MEDS ORDERED: MIDAZOLAM HCL 1 MG/ML 2ML VIAL ONE (23:51)
[2019-03-26] MEDS ORDERED: LIDOCAINE HCL 2% 2 ML VIAL/AMP(20MG/ML) INFIL ONE (00:34)
[2019-03-26] MEDS ORDERED: PROPOFOL IV EMULSION 10 MG/ML 20 ML VIAL IV ONE (00:34)
[2019-03-26] MEDS ORDERED: DEXAMETHASONE SOD INJ 4 MG/ML VIAL ONE (00:34)
[2019-03-26] MEDS ORDERED: ONDANSETRON INJ 2 MG/ML 2 ML VIAL ONE (00:34)
[2019-03-26] MEDS ORDERED: OXYTOCIN 10 UNITS/ML VIAL ONE (00:34)
--- NOTE | 2019-03-26 01:18 | Anesthesiology Progress Note ---
Date of Service March 26, 2019 Anesthesia Post Procedure Vital Signs Vital Signs: Temp Pulse Pulse Pulse Resp BP BP 03/26/19 01:05 70 22 115/89 03/26/19 00:55 74 20 110/75 03/26/19 00:45 36.5 C 87 20 103/71 03/25/19 23:01 64 18 108/64 03/25/19 18:43 36.4 C L 83 18 102/52 L Pulse Ox 03/26/19 01:05 100 03/26/19 00:55 100 03/26/19 00:45 100 03/25/19 23:01 98 03/25/19 18:43 100 Transfer of Care Handoff Completed per policy Notes Mental Status: alert / awake / arousable and participated in evaluation Patient Amnestic to Procedure: Yes Nausea / Vomiting: adequately controlled Pain: adequately controlled Airway Patency, RR, SpO2: stable & adequate BP & HR: stable & adequate Hydration State: stable & adequate Anesthetic Complications: no major complications apparent
[2019-03-26] MEDS ORDERED: OXYCODONE/ACETAMINOPHEN 5mg/325mg TAB PO PRN (01:53)
[2019-03-26] MEDS ORDERED: IBUPROFEN 600 MG TAB PO PRN (01:53)
[2019-03-26] MEDS ORDERED: ONDANSETRON INJ 2 MG/ML 2 ML VIAL IV PRN (01:53)
[2019-03-26] MEDS ORDERED: CEFAZOLIN 1000MG 1,000 MG/7.5 ML SYR IV SCH (06:00)
[2019-03-26 06:46] LABS: Basophils # (auto) 0.01 K/uL (0-0.2); Basophils % (auto) 0.1 %; Hematocrit (blood only) 29.9 % (37-47); Hemoglobin 10.2 g/dL (12.0-16.0); Immature Granulocytes # (auto) 0.03 K/uL (0.00-0.02); Immature Granulocytes % (auto) 0.3 %; Lymphocytes # (auto) 0.78 K/uL (1.2-3.4); Lymphocytes % (auto) 6.6 %; Mean Corpuscular Hgb Conc 34.1 g/dL (32-36); Mean Platelet Volume 10.8 fL (7.4-10.4); Monocytes # (auto) 0.16 K/uL (0.11-0.59); Monocytes % (auto) 1.4 %; Neutrophils # (auto) 10.78 K/uL (1.4-6.5); Neutrophils % (auto) 91.6 %; Platelet Count 185 K/uL (130-400); RDW Coefficient of Variation 12.5 % (11.5-14.5); RDW Standard Deviation 42.7 fL (36.4-46.3); Red Blood Count 3.25 M/uL (4.2-5.4); White Blood Count 11.76 K/uL (4.8-10.8)
[2019-03-26] MEDS ORDERED: BCP'S~ORDER AWAITING ACTION SCH (08:00)
[2019-03-26] MEDS ORDERED: SERTRALINE HCL 50 MG TABLET PO SCH (09:00)
[2019-03-26] MEDS ORDERED: BuPROPion XL 150 MG TABCR PO SCH (09:00)
[2019-03-26] MEDS ORDERED: CETIRIZINE HCL 10 MG TABLET PO SCH (09:00)
[2019-03-26] MEDS ORDERED: VALACYCLOVIR HCL 500 MG TABLET PO SCH (09:00)
--- NOTE | 2019-03-26 09:12 | Operative Report ---
DATE OF OPERATION: 03/26/2019 PREOPERATIVE DIAGNOSIS: The patient is a 23-year-old G2, P1-0-1-1 who is status post elective 3 months ago with persistent vaginal bleeding and retained products of conception/placenta. POSTOPERATIVE DIAGNOSIS: The patient is a 23-year-old G2, P1-0-1-1 who is status post elective 3 months ago with persistent vaginal bleeding and retained products of conception/placenta. PROCEDURE: Examination under anesthesia, suction / evacuation of uterine contents, D & C ( Dilatation and Curettage) under ultrasound guidance. SURGEON: Chago Quiroz MD SUPPLY OFFICER: OR nurses. ESTIMATED BLOOD LOSS: 20 mL URINE: 100 mL of urine drained. FINDINGS: Examination under anesthesia revealed anteverted 8-week size uterus, nonpalpable adnexa, and cervix was already dilated about 1 cm with a blood clot and tissue at the cervical os. ANESTHESIA: LMA ANESTHESIOLOGIST: Dr. Rocha. COMPLICATIONS: None. DESCRIPTION OF PROCEDURE: The patient was taken to operating room where anesthesia was given without difficulty. She was placed in dorsal lithotomy position, prepared and draped in usual sterile fashion. Examination under anesthesia was done with the above findings. The bladder was emptied with a straight catheter, 100 mL of clear urine was obtained. The ultrasound was done by robotic weld technician. Uterus was visualized and endometrial thickening was visualized and then the speculum was placed in the patient's vagina. Bladder was retracted with Andrews speculum, and then the cervix was visualized and grasped with single tooth tenakulum. The cervical os was open about 1-2 cm and there was a blood clot with tissue at the os, which was removed with the polyp forceps and then the polyp forceps was introduced into uterine cavity and more tissues were removed from the uterine cavity under ultrasound guidance. The uterus was sounded to be at 8 cm and then #10 suction tip was introduced into the uterine cavity by ultrasound guidance. The retained products of conception was suctioned and the tip was twisted in a clockwise direction. Moderate amount of tissue and the blood was obtained and suctioned. The suction was repeated again until all the contents were suctioned under ultrasound guidance. Then a small sharp curette was used. The uterine cavity was curetted under ultrasound guidance until uterine cry sensation was felt in all quadrants of the uterus. Ultrasound was repeated. Endometrium appeared to be thin and bleeding was minimal. The patient was given IM Methergine and oxytocin IV and the bleeding stopped. All instruments were removed. There was minimal oozing on the tenaculum site, which was controlled with Monsel solution and a bimanual examination was done. Uterus was firm and contracted and bleeding stopped. All the instruments and sponge count was correct x2. She was cleaned, taken out from lithotomy position. She was brought to recovery room in stable condition. I attest to the content of the Intraoperative Record and any orders documented therein. Any exceptions are noted below. JOSUÉ
--- NOTE | 2019-03-26 09:33 | Surgery Progress Note ---
Date of Service March 26, 2019 Subjective doing well tolerating diet no pain Physical Exam Constitutional: WD/WN, vitals as above comfortable Results & Data Vital Signs (Past 12 Hours) Vital Signs Temp Pulse Pulse Pulse Resp BP Pulse Ox 03/26/19 07:55 37.2 C 74 18 101/61 97 03/26/19 05:40 37 C 83 16 107/68 97 03/26/19 04:20 37 C 88 16 104/67 99 03/26/19 03:15 37 C 89 16 109/69 99 03/26/19 02:35 36.8 C 74 18 100/64 99 03/26/19 01:58 36.8 C 72 18 110/71 98 03/26/19 01:25 36.9 C 75 18 113/80 100 03/26/19 01:15 72 20 109/77 100 03/26/19 01:05 70 22 115/89 100 03/26/19 00:55 74 20 110/75 100 03/26/19 00:45 36.5 C 87 20 103/71 100 03/25/19 23:01 64 18 108/64 98 Laboratory Results Laboratory Results - last 24 hr 03/25/19 03/25/19 03/25/19 19:00 19:00 19:00 WBC 14.24 H RBC 3.82 L Hgb 11.9 L Hct 34.9 L MCV 91.4 MCH 31.2 MCHC 34.1 RDW Std Deviation 42.0 RDW Coeff of Francisco 12.5 Plt Count 193 MPV 10.9 H Immature Gran % (Auto) 0.2 Neut % (Auto) 74.1 Lymph % (Auto) 19.2 Crosby % (Auto) 4.9 Eos % (Auto) 1.2 Baso % (Auto) 0.4 Immature Gran # (Auto) 0.03 H Neut # (Auto) 10.55 H Lymph # (Auto) 2.74 Crosby # (Auto) 0.70 H Eos # (Auto) 0.17 Baso # (Auto) 0.05 PT INR APTT PTT Ratio Sodium 141 Potassium 3.5 Chloride 108 H Carbon Dioxide 25 Anion Gap 8.0 BUN 12 Creatinine 0.78 Est Cr Clr Drug Dosing 70.2 Est GFR ( Amer) 123.3 Est GFR (Non-Af Amer) 106.4 BUN/Creatinine Ratio 15.9 Glucose 120 H Calcium 8.3 L Total Bilirubin 0.2 AST 14 L ALT 16 Alkaline Phosphatase 69 Total Protein 6.8 Albumin 3.8 Globulin 3.0 Albumin/Globulin Ratio 1.3 TSH 0.813 HCG, Quant 6 Blood Type Antibody Screen 03/25/19 03/25/19 03/25/19 19:00 19:00 19:00 WBC RBC Hgb Hct MCV MCH MCHC RDW Std Deviation RDW Coeff of Francisco Plt Count MPV Immature Gran % (Auto) Neut % (Auto) Lymph % (Auto) Crosby % (Auto) Eos % (Auto) Baso % (Auto) Immature Gran # (Auto) Neut # (Auto) Lymph # (Auto) Crosby # (Auto) Eos # (Auto) Baso # (Auto) PT 10.9 INR 1.1 APTT 21.7 PTT Ratio 0.8 Sodium Potassium Chloride Carbon Dioxide Anion Gap BUN Creatinine Est Cr Clr Drug Dosing Est GFR ( Amer) Est GFR (Non-Af Amer) BUN/Creatinine Ratio Glucose Calcium Total Bilirubin AST ALT Alkaline Phosphatase Total Protein Albumin Globulin Albumin/Globulin Ratio TSH Cancelled HCG, Quant Blood Type O Positive Antibody Screen NEGATIVE 03/26/19 06:17 WBC 11.76 H RBC 3.25 L Hgb 10.2 L Hct 29.9 L MCV 92.0 MCH 31.4 MCHC 34.1 RDW Std Deviation 42.7 RDW Coeff of Francisco 12.5 Plt Count 185 MPV 10.8 H Immature Gran % (Auto) 0.3 Neut % (Auto) 91.6 Lymph % (Auto) 6.6 Crosby % (Auto) 1.4 Eos % (Auto) 0.0 Baso % (Auto) 0.1 Immature Gran # (Auto) 0.03 H Neut # (Auto) 10.78 H Lymph # (Auto) 0.78 L Crosby # (Auto) 0.16 Eos # (Auto) 0.00 Baso # (Auto) 0.01 PT INR APTT PTT Ratio Sodium Potassium Chloride Carbon Dioxide Anion Gap BUN Creatinine Est Cr Clr Drug Dosing Est GFR ( Amer) Est GFR (Non-Af Amer) BUN/Creatinine Ratio Glucose Calcium Total Bilirubin AST ALT Alkaline Phosphatase Total Protein Albumin Globulin Albumin/Globulin Ratio TSH HCG, Quant Blood Type Antibody Screen
--- NOTE | 2019-03-28 02:55 | Discharge Summary ---
DATE OF ADMISSION: 03/25/2019 DATE OF DISCHARGE: 03/26/2019 DETAILS OF ADMISSION: The patient is a 23-year-old G2, P1-0-1-1 female who had elective 3 months ago in [place]. She presented to the ER with heavy vaginal bleeding and found to have retained placenta, products of conception in the uterus per ultrasound. The patient had been bleeding for 3 months which increased over last week. After discussion, she decided on the surgical evacuation of the uterine contents and dilatation and curettage under anesthesia. She was admitted and she was taken to OR for above procedure. It was done under ultrasound guidance. See op note for details. No complications happened. See dictated op note for details. she recovered and then she was brought to fourth floor to [facility] floor. Her vital signs were stable, afebrile. She asked for diet. She ate regular food and tolerated. Her H&H was 10.2/29.9, white count was 11 on 03/26/2019 in the morning. She was seen by Dr. Bobo and discharged home and discharge instructions were given. Prescriptions were written. She is to be seen in the office as a followup. All questions were answered. JOSUÉ
== END 2019-03-26 10:10 | disposition home or self-care (01) ==
LOC: ED 18:42 → 4N 23:27 → OR 23:27